=== PATIENT | male | born 1955 | race Caucasian/White ===

== ENCOUNTER 2024-02-17 11:25 | Outpatient (OUT) | payer MEDICARE, SELFPAY ==
--- NOTE | 2024-02-17 | XR_ITS ---
The [address] [address] Patient Name: CHESTER SEGURA MRN: [id number] date: 1955 Sex: M Assigned Patient Location: Current Patient Location: Accession/Order Number: [id number] Exam Date: 02/17/2024 11:37 Report Date: 02/18/2024 06:59 At the request of: EDWIN SALDAÑA Procedure: XR ankle RT min 3V PROCEDURE: XR ankle RT min 3V, XR tibia fibula RT 2V HISTORY: RIGHT ANKLE PAIN ; medial ankle pain since twisting injury 3 weeks ago COMPARISON: None. FINDINGS: BONES:No fracture, acute abnormality, or significant arthropathy. SOFT TISSUES:No visible soft tissue swelling. EFFUSION:None visible. OTHER: Negative. XR/XR ankle RT min 3V IMPRESSION: 1. No acute bone abnormality or suspicious findings. 2. Minimal degenerative changes. Electronically authenticated by: PILAR BEE Date: 02/18/2024 06:59
--- NOTE | 2024-02-17 | XR_ITS ---
The [address] [address] Patient Name: CHESTER SEGURA MRN: [id number] date: 1955 Sex: M Assigned Patient Location: Current Patient Location: Accession/Order Number: [id number] Exam Date: 02/17/2024 12:06 Report Date: 02/18/2024 06:59 At the request of: EDWIN SALDAÑA Procedure: XR tibia fibula RT 2V PROCEDURE: XR ankle RT min 3V, XR tibia fibula RT 2V HISTORY: RIGHT ANKLE PAIN ; medial ankle pain since twisting injury 3 weeks ago COMPARISON: None. FINDINGS: BONES:No fracture, acute abnormality, or significant arthropathy. SOFT TISSUES:No visible soft tissue swelling. EFFUSION:None visible. OTHER: Negative. XR/XR tibia fibula RT 2V IMPRESSION: 1. No acute bone abnormality or suspicious findings. 2. Minimal degenerative changes. Electronically authenticated by: PILAR BEE Date: 02/18/2024 06:59
== END 2024-02-17 11:26 | disposition home or self-care (01) ==
LOC: EC 11:28
PROVIDERS: PCP Podiatrist Foot & Ankle Surgery; Visit Provider Podiatrist Foot & Ankle Surgery
DX: M25.571 Pain in right ankle and joints of right foot (principal)
CPT/HCPCS: 73590; 73610